=== PATIENT | female | born 1990 | race Caucasian/White ===

== ENCOUNTER 2017-05-09 06:38 | Inpatient (IN) | payer MEDICAID ==
[~2017-05-09] VITALS: Ht 167.6 cm; Wt 74.5 kg
[2017-05-09] VITALS (63 sets, daily range): BP systolic 96–157; BP diastolic 52–85; PULSE 75–146; TEMP 97.7–98.6
[~2017-05-09 06:38] MED LIST: MOTRIN 600600 MG/TAB PO; NORCO 325 MG-7.1 TAB PO; PAXIL 10MG10 MG PO; PERCOCET 325 MG1 TA2 PO; YAZ 28 3 MG-0.01 TAB PO; ZOVIRAX 200MG200 MG PO
[2017-05-09] MEDS ORDERED: PRENATAL PO (07:48)
[2017-05-09] MEDS ORDERED: VALTREX 50500 MG/TAB PO (07:49)
[2017-05-09 08:09] LABS: BASO # 0.1 (0.0-0.2); BASO % 0.4 % (0.0-2.0); EOS # 0.1 (0.0-0.7); EOS % 0.6 % (0-4.0); GRAN # 8.1 (1.4-6.5); GRAN % 62.3 % (42.2-75.2); HEMATOCRIT 39.8 % (37.0-47.0); HEMOGLOBIN 14.1 g/dl (12.5-16.0); LYMPH # 3.9 (1.2-3.4); MEAN CELL VOLUME 97 fl (80.0-100.0); MEAN CORPUSCULAR HEMOGLOBIN 34 pg (27.0-31.0); MEAN CORPUSCULAR HGB CONC 35 g/dl (33.0-37.0); MEAN PLATELET VOLUME 10.6 fl (7.4-10.4); MONO # 0.8 (0.1-0.6); MONO % 6.2 % (1.7-9.3); PLATELET COUNT 203 K/mm3 (130-400); RED BLOOD COUNT 4.11 M/mm3 (4.10-5.30)
[2017-05-10 00:15] VITALS: BP 130/88; PULSE 109
[2017-05-10 01:15] VITALS: BP 119/67; PULSE 111
[2017-05-10 05:00] VITALS: BP 117/71; PULSE 104; TEMP 99
[2017-05-10 08:30] VITALS: BP 87/65; PULSE 83; TEMP 97.8
[2017-05-10] MEDS ORDERED: IBU800 M1 PO (10:30)
[2017-05-10 16:15] VITALS: BP 115/60; PULSE 89; TEMP 97.6
[2017-05-10 20:35] VITALS: BP 119/80; PULSE 82; TEMP 98.3
[2017-05-11 07:46] VITALS: BP 121/73; PULSE 82; TEMP 97.3
== END 2017-05-11 12:15 | disposition home or self-care (01) | DRG 775 ==
LOC: LDR 06:38 → OB 06:59
PROVIDERS: Obstetrics & Gynecology
PROC: 10E0XZZ Delivery of Products of Conception, External Approach (ICD-10-PCS; principal; 2017-05-09)
PROC: 0KQM0ZZ Repair Perineum Muscle, Open Approach (ICD-10-PCS; 2017-05-09)
PROC: 3E033VJ Introduction of Other Hormone into Peripheral Vein, Percutaneous Approach (ICD-10-PCS; 2017-05-09)
DX: O70.1 Second degree perineal laceration during delivery (principal); Z3A.39 39 weeks gestation of pregnancy; Z37.0 Single live birth
CPT/HCPCS: J2590; J2795; J7120

== ENCOUNTER 2018-05-10 09:07 | Observation (INO) | payer MEDICAID ==
[~2018-05-10] VITALS: Ht 167.6 cm; Wt 61.2 kg
[~2018-05-10 09:07] MED LIST changes: +IBU800 M1 PO; +PRENATAL PO; +VALTREX 50500 MG/TAB PO
[2018-05-10] MEDS ORDERED: CAMILA0.35 MG PO (09:15)
[2018-05-10 09:47] LABS: COLLECTION METHOD CLEAN CATCH
[2018-05-10 09:49] LABS: BASO # 0.1 (0.0-0.2); BASO % 0.7 % (0.0-2.0); EOS % 0.4 % (0-4.0); GRAN # 5.1 (1.4-6.5); GRAN % 68.1 % (42.2-75.2); HEMATOCRIT 44.3 % (37.0-47.0); HEMOGLOBIN 15.6 g/dl (12.5-16.0); LYMPH # 1.8 (1.2-3.4); LYMPH % 23.4 % (20.0-51.0); MEAN CELL VOLUME 93 fl (80.0-100.0); MEAN CORPUSCULAR HEMOGLOBIN 33 pg (27.0-31.0); MEAN CORPUSCULAR HGB CONC 35 g/dl (33.0-37.0); MEAN PLATELET VOLUME 9.7 fl (7.4-10.4); MONO # 0.6 (0.1-0.6); MONO % 7.3 % (1.7-9.3); PLATELET COUNT 250 K/mm3 (130-400); RED BLOOD COUNT 4.75 M/mm3 (4.10-5.30); REDCELL DISTRIBUTION WIDTH-CV 11.1 % (11.5-14.5)
[2018-05-10 09:55] LABS: MUCOUS Present /lpf; PH 7 (5-8); SQUAMOUS EPITHELIAL 0-2 /hpf; URINE APPEARANCE Hazy; URINE BACTERIA None Seen /hpf; URINE BILIRUBIN Negative (NEGATIVE); URINE BLOOD 2+ (NEGATIVE); URINE COLOR Yellow; URINE GLUCOSE Negative (NEGATIVE); URINE KETONE Negative (NEGATIVE); URINE LEUKOCYTE ESTERASE Negative (NEGATIVE); URINE NITRATE Negative (NEGATIVE); URINE PROTEIN(semi-quant) Negative (NEGATIVE); URINE RBC 0-2 /hpf; URINE UROBILINOGEN Negative (NEGATIVE)
[2018-05-10 10:10] LABS: ALBUMIN 4.6 gm/dL (3.5-5.0); BILIRUBIN,TOTAL 0.7 mg/dL (0.0-1.0); C-REACTIVE PROTEIN 2.7 mg/dL (0.0-0.9); CALCIUM 9.8 mg/dL (8.4-10.2); CREATININE, serum 0.65 mg/dL (0.52-1.25); POTASSIUM 4.1 mmol/L (3.4-5.0); TOTAL PROTEIN 7.8 gm/dL (6.4-8.2)
[2018-05-10 12:48] VITALS: BP 127/74; PULSE 87; TEMP 98.3
[2018-05-10 15:46] VITALS: BP 120/70; PULSE 83; TEMP 98.8
[2018-05-10 19:20] VITALS: BP 115/71; PULSE 78; TEMP 98.1
[2018-05-10 23:53] VITALS: BP 100/52; PULSE 67; TEMP 98.5
[2018-05-11 04:39] VITALS: BP 107/69; PULSE 69; TEMP 97.9
[2018-05-11 06:13] LABS: HEMATOCRIT 38.7 % (37.0-47.0); MEAN CELL VOLUME 94 fl (80.0-100.0); MEAN CORPUSCULAR HEMOGLOBIN 33 pg (27.0-31.0); MEAN CORPUSCULAR HGB CONC 35 g/dl (33.0-37.0); MEAN PLATELET VOLUME 9.8 fl (7.4-10.4); PLATELET COUNT 206 K/mm3 (130-400)
[2018-05-11 06:23] LABS: HEMOGLOBIN 13.6 g/dl (12.5-16.0)
[2018-05-11 06:38] LABS: C-REACTIVE PROTEIN 2.1 mg/dL (0.0-0.9); CALCIUM 8.8 mg/dL (8.4-10.2); CREATININE, serum 0.65 mg/dL (0.52-1.25)
[2018-05-11 07:52] LABS: BAND 9 % (0-10); LYMPHOCYTE 48 % (20.0-51.0); NEUTROPHILS 38 % (42.0-75.2)
[2018-05-11 07:53] LABS: PLATELET ESTIMATE NORMAL (NORMAL)
[2018-05-11 08:54] VITALS: BP 111/74; PULSE 85; TEMP 97.3
[2018-05-11 11:42] VITALS: BP 116/72; PULSE 75; TEMP 97.6
[2018-05-11] MEDS ORDERED: FLAGYL500 MG PO (15:21)
[2018-05-11] MEDS ORDERED: OMNICEF 300MG300 MG PO (15:21)
== END 2018-05-11 16:10 | disposition home or self-care (01) ==
LOC: COL.ER 09:07 → SURG 11:02
PROVIDERS: Family Medicine; Surgery
DX: K35.80 Unspecified acute appendicitis (principal); Z88.0 Allergy status to penicillin
CPT/HCPCS: G0378; J1335; J1956; J7030; J7120; Q9967

== ENCOUNTER 2018-10-04 02:42 | Emergency (ER) | payer MEDICAID ==
[~2018-10-04] VITALS: Ht 167.6 cm; Wt 61.4 kg
[~2018-10-04 02:42] MED LIST changes: +CAMILA0.35 MG PO; +FLAGYL500 MG PO; +OMNICEF 300MG300 MG PO
[2018-10-04 02:54] VITALS: TEMP 97.8
[2018-10-04] MEDS ORDERED: VALTREX 50500 MG/TAB PO (03:18)
[2018-10-04] MEDS ORDERED: SPRINTEC 35 MCG1 TAB PO (03:18)
[2018-10-04 03:22] LABS: HEMATOCRIT 50.3 % (37.0-47.0); HEMOGLOBIN 17.7 g/dl (12.5-16.0); MEAN CELL VOLUME 94 fl (80.0-100.0); MEAN CORPUSCULAR HEMOGLOBIN 33 pg (27.0-31.0); MEAN CORPUSCULAR HGB CONC 35 g/dl (33.0-37.0); MEAN PLATELET VOLUME 9.9 fl (7.4-10.4); PLATELET COUNT 218 K/mm3 (130-400); RED BLOOD COUNT 5.37 M/mm3 (4.10-5.30); REDCELL DISTRIBUTION WIDTH-CV 11.7 % (11.5-14.5)
[2018-10-04 03:36] LABS: ALANINE AMINOTRANSFERASE 8 U/L (9-52); ALBUMIN 5.2 gm/dL (3.5-5.0); ALKALINE PHOSPHATASE 63 U/L (50-136); ANION GAP 18 mmol/L (7-16); AST,SGOT 27 U/L (15-37); BILIRUBIN,TOTAL 0.8 mg/dL (0.0-1.0); BLOOD UREA NITROGEN 19 mg/dL (7-17); CALCIUM 10.4 mg/dL (8.4-10.2); CARBON DIOXIDE 21 mmol/L (22-30); CHLORIDE 103 mmol/L (98-107); CREATININE, serum 0.94 (0.52-1.25); GLUCOSE 170 mg/dL (74-106); LIPASE 90 U/L (23-300); POTASSIUM 4.3 mmol/L (3.4-5.0); SODIUM 142 mmol/L (137-145); TOTAL PROTEIN 9.2 gm/dL (6.4-8.2)
[2018-10-04 03:37] LABS: C-REACTIVE PROTEIN < 0.5 mg/dL (0.0-0.9)
[2018-10-04] MEDS ORDERED: PHENERGAN 25 TA25 MG PO (05:15)
[2018-10-04] MEDS ORDERED: ZOFRAN ODT4 MG PO (05:15)
[2018-10-04 06:34] LABS: BAND 27 % (0-10); EOSINOPHIL 2 % (0-4); LYMPHOCYTE 6 % (20.0-51.0); NEUTROPHILS 62 % (42.0-75.2)
[2018-10-04 06:35] LABS: PLATELET ESTIMATE NORMAL (NORMAL)
[2018-10-04 06:39] VITALS: BP 117/79; PULSE 91
== END 2018-10-04 06:39 | disposition home or self-care (01) ==
LOC: COL.ER 02:42
PROVIDERS: Emergency Medicine
DX: A08.11 Acute gastroenteropathy due to Norwalk agent (principal); A04.0 Enteropathogenic Escherichia coli infection; E86.0 Dehydration; R11.10 Vomiting, unspecified; F41.9 Anxiety disorder, unspecified; F32.9 Major depressive disorder, single episode, unspecified
CPT/HCPCS: J2405; J2550; J7030

== ENCOUNTER 2019-02-17 09:18 | Emergency (ER) | payer MEDICAID ==
[~2019-02-17] VITALS: Ht 167.6 cm; Wt 59.1 kg
[~2019-02-17 09:18] MED LIST changes: +PHENERGAN 25 TA25 MG PO; +SPRINTEC 35 MCG1 TAB PO; +ZOFRAN ODT4 MG PO
[2019-02-17 09:29] VITALS: BP 112/79; TEMP 98.3
[2019-02-17 10:12] LABS: COLLECTION METHOD CLEAN CATCH
[2019-02-17 10:23] LABS: BASO % 0.4 % (0.0-2.0); EOS % 0.1 % (0-4.0); GRAN # 5.4 (1.4-6.5); GRAN % 72.6 % (42.2-75.2); HEMATOCRIT 44.7 % (37.0-47.0); HEMOGLOBIN 15.4 g/dl (12.5-16.0); LYMPH # 1.6 (1.2-3.4); LYMPH % 21.6 % (20.0-51.0); MEAN CELL VOLUME 96 fl (80.0-100.0); MEAN CORPUSCULAR HEMOGLOBIN 33 pg (27.0-31.0); MEAN CORPUSCULAR HGB CONC 35 g/dl (33.0-37.0); MEAN PLATELET VOLUME 9.7 fl (7.4-10.4); MONO # 0.4 (0.1-0.6); PLATELET COUNT 224 K/mm3 (130-400); RED BLOOD COUNT 4.66 M/mm3 (4.10-5.30); REDCELL DISTRIBUTION WIDTH-CV 11.3 % (11.5-14.5)
[2019-02-17 10:33] LABS: MUCOUS Present /lpf; PH 8 (5-8); SQUAMOUS EPITHELIAL 0-2 /hpf; URINE APPEARANCE Hazy; URINE BACTERIA None Seen /hpf; URINE BILIRUBIN Negative (NEGATIVE); URINE BLOOD Negative (NEGATIVE); URINE COLOR Yellow; URINE GLUCOSE Negative (NEGATIVE); URINE KETONE Negative (NEGATIVE); URINE LEUKOCYTE ESTERASE Negative (NEGATIVE); URINE NITRATE Negative (NEGATIVE); URINE PROTEIN(semi-quant) Negative (NEGATIVE); URINE RBC 0-2 /hpf; URINE UROBILINOGEN Negative (NEGATIVE)
[2019-02-17 10:33] LABS: ALANINE AMINOTRANSFERASE 9 U/L (9-52); ALBUMIN 4.6 gm/dL (3.5-5.0); ALKALINE PHOSPHATASE 44 U/L (50-136); ANION GAP 10 mmol/L (7-16); AST,SGOT 35 U/L (15-37); BILIRUBIN,TOTAL 0.5 mg/dL (0.0-1.0); BLOOD UREA NITROGEN 10 mg/dL (7-17); CALCIUM 9.3 mg/dL (8.4-10.2); CARBON DIOXIDE 26 mmol/L (22-30); CHLORIDE 104 mmol/L (98-107); CREATININE, serum 0.64 (0.52-1.25); GLUCOSE 84 mg/dL (74-106); LIPASE 54 U/L (23-300); POTASSIUM 4.2 mmol/L (3.4-5.0); SODIUM 140 mmol/L (137-145); TOTAL PROTEIN 7.7 gm/dL (6.4-8.2)
[2019-02-17] MEDS ORDERED: VALTREX 50500 MG/TAB PO (10:34)
[2019-02-17 10:37] LABS: C-REACTIVE PROTEIN < 0.5 mg/dL (0.0-0.9)
[2019-02-17 13:05] VITALS: PULSE 77
== END 2019-02-17 13:05 | disposition home or self-care (01) ==
LOC: COL.ER 09:18
PROVIDERS: Emergency Medicine
DX: R10.2 Pelvic and perineal pain (principal); Z98.890 Other specified postprocedural states
CPT/HCPCS: J7030

== ENCOUNTER 2020-11-16 06:12 | Inpatient (IN) | payer MEDICAID ==
[2020-11-16] VITALS (35 sets, daily range): BP systolic 111–141; BP diastolic 62–88; PULSE 9–120; TEMP 98.3–98.7
[~2020-11-16] VITALS: Ht 167.6 cm; Wt 74.5 kg
--- NOTE | 2020-11-16 06:30 | NUR ---
Patient arrives ambulatory with FOB for scheduled induction of labor. Patient reports occasional contractions, denies ROM or vaginal bleeding and reports normal movement. Patient changes into gown, EFM explained and placed. VS obtained. Plan of care for induction reviewed, patient agrees and denies questions. 0645- IV started in LFA, labs obtained and sent. LR infusing per protocol. Consents explained and signed. Denies questions. Assessment completed. 0705- Pitocin administration reviewed with patient, agrees and denies questions. FHR strip meets criteria for Pitocin induction. Pitocin started at 2 mU per protocol and order.
[2020-11-16] MEDS ORDERED: PRENATAL (06:51)
[2020-11-16 07:36] LABS: BASO % 0.4 % (0.0-2.0); EOS # 0.2 (0.0-0.7); EOS % 1.4 % (0-4.0); GRAN % 62.9 % (42.2-75.2); HEMATOCRIT 37.9 % (37.0-47.0); HEMOGLOBIN 13.2 g/dl (12.5-16.0); LYMPH # 3.1 (1.2-3.4); LYMPH % 28.2 % (20.0-51.0); MEAN CELL VOLUME 98 fl (80.0-100.0); MEAN CORPUSCULAR HEMOGLOBIN 34 pg (27.0-31.0); MEAN CORPUSCULAR HGB CONC 35 g/dl (33.0-37.0); MEAN PLATELET VOLUME 10.3 fl (7.4-10.4); MONO # 0.7 (0.1-0.6); MONO % 6.6 % (1.7-9.3); PLATELET COUNT 183 K/mm3 (130-400); RED BLOOD COUNT 3.85 M/mm3 (4.10-5.30); REDCELL DISTRIBUTION WIDTH-CV 12.7 % (11.5-14.5)
--- NOTE | 2020-11-16 13:25 | NUR ---
1325- Dr. Black at bedside. 1328- SVE per provider +2. Valenzuela catheter removed prior to pushing, pericare given. Nursery RN to bedside and patient assisted to footplates. Reports urge to push. 1335- Patient begins pushing with contractions with physician at bedside. 1337- of viable female attended by Dr. Black. Infant to mother's abdomen, care of to Ciro Herrera. Apgars 10/10/10. 1340- Spontaneous delivery of placenta. Pitocin started at 333 ml/hr/protocol. Fundal massage by RN notes moderate amount of free flow. Orders for Methergine, given at 1345. Vaginal bleeding improves with massage and medication. Second degree perineal laceration repaired by Dr. Black. Patient tolerates well. Pericare given and ice pack applied. Updated on plan of care and safety.
[2020-11-17] VITALS: BP 123/78; PULSE 87; TEMP 98
[2020-11-17 05:00] VITALS: BP 121/74; PULSE 74; TEMP 98.1
[2020-11-17] MEDS ORDERED: MOTRIN 800800 MG/TAB PO (08:08)
[2020-11-17 08:58] VITALS: BP 114/68; PULSE 86; TEMP 98.3
--- NOTE | 2020-11-17 10:25 | NUR ---
Initial visit; Parents thanked School Bus Driver/Custodian for offering Congratulations and God's blessings for the of their daughter. School Bus Driver/Custodian thanked family for choosing [facility].
== END 2020-11-17 16:09 | disposition home or self-care (01) | DRG 807 ==
LOC: LDR 06:12 → OB 16:00
PROVIDERS: ADMIT Obstetrics & Gynecology
PROC: 10E0XZZ Delivery of Products of Conception, External Approach (ICD-10-PCS; principal; 2020-11-16)
PROC: 0KQM0ZZ Repair Perineum Muscle, Open Approach (ICD-10-PCS; 2020-11-16)
PROC: 10907ZC Drainage of Amniotic Fluid, Therapeutic from Products of Conception, Via Natural or Artificial Opening (ICD-10-PCS; 2020-11-16)
PROC: 3E033VJ Introduction of Other Hormone into Peripheral Vein, Percutaneous Approach (ICD-10-PCS; 2020-11-16)
DX: O98.32 Other infections with a predominantly sexual mode of transmission complicating childbirth (principal); Z37.0 Single live birth; A60.09 Herpesviral infection of other urogenital tract; O70.1 Second degree perineal laceration during delivery; Z3A.39 39 weeks gestation of pregnancy
CPT/HCPCS: J2210; J2590; J7120

== ENCOUNTER 2021-04-12 14:50 | Day surgery (SDC) | payer MEDICAID ==
[~2021-04-12] VITALS: Ht 167.6 cm; Wt 66.4 kg
[~2021-04-12 14:50] MED LIST changes: +MOTRIN 800800 MG/TAB PO; +PRENATAL
[2021-04-12 15:46] LABS: BASO # 0.1 K/mm3 (0.0-0.2); BASO % 0.4 % (0.0-2.0); EOS % 0.2 % (0-4.0); GRAN # 11.8 K/mm3 (1.4-6.5); GRAN % 84.2 % (42.2-75.2); HEMATOCRIT 43.4 % (37.0-47.0); HEMOGLOBIN 15.5 g/dl (12.5-16.0); LYMPH # 1.4 K/mm3 (1.2-3.4); LYMPH % 9.8 % (20.0-51.0); MEAN CELL VOLUME 92 fl (80.0-100.0); MEAN CORPUSCULAR HEMOGLOBIN 33 pg (27.0-31.0); MEAN CORPUSCULAR HGB CONC 36 g/dl (33.0-37.0); MEAN PLATELET VOLUME 9.5 fl (7.4-10.4); MONO # 0.7 K/mm3 (0.1-0.6); PLATELET COUNT 224 K/mm3 (130-400); REDCELL DISTRIBUTION WIDTH-CV 11.1 % (11.5-14.5)
[2021-04-12 15:47] LABS: COLLECTION METHOD CLEAN CATCH
[2021-04-12 15:54] LABS: PH 7 (5-8); SQUAMOUS EPITHELIAL None Seen /hpf (0-10); URINE APPEARANCE Clear (CLEAR/HAZY); URINE BACTERIA None Seen (NONE SEEN); URINE BILIRUBIN Negative (NEGATIVE); URINE BLOOD Negative (NEGATIVE); URINE COLOR Straw (YELLOW); URINE GLUCOSE Negative (NEGATIVE); URINE KETONE Trace (NEGATIVE); URINE LEUKOCYTE ESTERASE Negative (NEGATIVE); URINE NITRATE Negative (NEGATIVE); URINE PROTEIN(semi-quant) Negative (NEGATIVE); URINE RBC 0-2 /hpf (0-2); URINE UROBILINOGEN Negative (NEGATIVE)
[2021-04-12 16:02] LABS: ALBUMIN 4.8 gm/dL (3.5-5.0); BILIRUBIN,TOTAL 0.6 mg/dL (0.2-1.2); C-REACTIVE PROTEIN 2.32 mg/dL (0.00-0.50); CREATININE, serum 0.81 mg/dL (0.57-1.11); POTASSIUM 4.6 mmol/L (3.5-4.5)
[2021-04-12 17:04] LABS: INR 1.2 (0.8-3.0); PROTHROMBIN TIME 13.2 SECONDS (9.7-12.8)
[2021-04-12 17:06] LABS: PARTIAL THROMBOPLASTIN TIME 33.8 SECONDS (26.0-37.0)
[2021-04-12] MEDS ORDERED: NORA-BE0.35 MG PO (17:47)
[2021-04-12] MEDS ORDERED: VALTREX 50500 MG/TAB PO (17:49)
--- NOTE | 2021-04-12 18:20 | NUR ---
PT ADMITTED TO UNIT. NO COMPLAINTS OF PAIN OR NAUSEA. NO SIGNS OF DISTRESS. AND 4 MONTH OLD DUAGHTER AT BEDSIDE TO BREASTFEED. CONSENT FOR SURGERY SIGNED. FLUIDS HUNG.
[2021-04-12 19:25] VITALS: BP 128/95; PULSE 95; TEMP 97.7
--- NOTE | 2021-04-12 20:20 | NUR ---
PT TAKEN TO O.R. FOR LAP LIZETTE.
--- NOTE | 2021-04-12 22:05 | NUR ---
PT BACK FROM PACU. PT DENIES NEED FOR PAIN MEDICATION. 3 LAP SITES TO ABDOMEN WELL APPROXIMATED. NO N/V.
[2021-04-12 22:15] VITALS: BP 107/59; PULSE 88
[2021-04-12 22:30] VITALS: BP 108/68; PULSE 94
[2021-04-12 22:44] VITALS: BP 114/80; PULSE 91; TEMP 97.9
[2021-04-12 23:15] VITALS: BP 109/74; PULSE 88
[2021-04-12 23:44] VITALS: BP 108/69; PULSE 90
[2021-04-13 00:45] VITALS: BP 107/76; PULSE 92; TEMP 96.9
[2021-04-13 03:55] VITALS: BP 111/73; PULSE 71; TEMP 97.6
--- NOTE | 2021-04-13 05:43 | NUR ---
PT VOIDING. ALTERNATING IBUPROFEN AND TYLENOL FOR PAIN. INDEPENDENT IN ROOM.
[2021-04-13 07:35] VITALS: BP 106/77; PULSE 82; TEMP 97.8
--- NOTE | 2021-04-13 08:00 | NUR ---
PT IS ALERT AND ORIENTED THIS MORNING. SHE IS SITTING UP IN BED WAITING FOR BREAKFAST TO ARRIVE. LAP SITES X3 ARE WELL APPROXIMATED WITH NO DRAINAGE. PT DOES NOT COMPLAIN OF ANY PAIN. PT STATES SHE IS READY TO LEAVE TODAY. SHE HAS NO OTHER NEEDS AT THIS TIME. CALL LIGHT AND BELONGINGS WITHIN REACH.
--- NOTE | 2021-04-13 09:24 | NUR ---
key worker met with patient to discuss discharge plan.Patient lives at home with her life partner Ed ([phone]) and their 3 young children. Patient is fully independent with her ADL's and does not utilize any medical equipment to assist with mobility. Patient has no oxygen needs. PCP is Dr. Collins and she utilizes [facility] for perscriptions with no cost difficulty. Patient does not have a DPOA-HC established. Education provided and the patient wishes to complete one listing her LP Ed. This SW and CASTRO Ferraro witnessed patient sign. Original and copy given to the patient and copy placed in the patient's chart. Patient is planning on returning home with no concerns. Discharge plan: Home
[2021-04-13] MEDS ORDERED: COLACE 100100 MG/CAP PO (10:16)
--- NOTE | 2021-04-13 10:50 | NUR ---
PATIENT DISCHARGING HOME VIA WC TO PERSONAL VEHICLE WITH AND DAUGHTER. GAVE DISCHARGE INSTRUCTIONS, E-SCRIPT SENT, AND DISCUSSED F/U APT. [facility] DC'D IV SITE AND COVERED SITE WITH [employer]. PATIENT IS DRESSED, PACKED AND ESCORTED OUT.
== END 2021-04-13 10:55 | disposition home or self-care (01) ==
LOC: COL.ER 14:50 → SDCO 16:40 → SURG 16:40 → COL.ER 16:40 → SURG 16:41 → SDCO 16:48 → SURG 04-13 10:55 → SDCO 04-13 10:55
PROVIDERS: Emergency Medicine
DX: K35.80 Unspecified acute appendicitis (principal); Z79.899 Other long term (current) drug therapy; Z87.891 Personal history of nicotine dependence
CPT/HCPCS: OP; G0378; J0330; J1100; J1335; J1885; J2250; J2405; J2704; J3010; J7030; Q9967

== ENCOUNTER 2021-06-06 11:03 | Emergency (ER) | payer MEDICAID ==
[~2021-06-06] VITALS: Ht 167.6 cm; Wt 66.8 kg
[~2021-06-06 11:03] MED LIST changes: +COLACE 100100 MG/CAP PO; +NORA-BE0.35 MG PO
[2021-06-06 11:17] VITALS: TEMP 98.1
[2021-06-06 11:30] LABS: MEAN CELL VOLUME 95 fl (80.0-100.0); MEAN CORPUSCULAR HEMOGLOBIN 33 pg (27-31); MEAN CORPUSCULAR HGB CONC 35 g/dl (33.0-37.0); MEAN PLATELET VOLUME 9.6 fl (7.4-10.4); PLATELET COUNT 358 K/mm3 (130-400); RED BLOOD COUNT 5.51 M/mm3 (4.10-5.30); REDCELL DISTRIBUTION WIDTH-CV 11.5 % (11.5-14.5)
[2021-06-06 11:34] LABS: HEMATOCRIT 52.2 % (37.0-47.0)
[2021-06-06 11:46] LABS: ALBUMIN 5.4 gm/dL (3.5-5.0); BILIRUBIN,TOTAL 0.7 mg/dL (0.2-1.2); CALCIUM 10.4 mg/dL (8.4-10.2); CREATININE, serum 1.04 mg/dL (0.57-1.11); POTASSIUM 4.2 mmol/L (3.5-4.5); TOTAL PROTEIN 8.8 gm/dL (6.2-8.1)
[2021-06-06 11:57] LABS: EOSINOPHIL 1 % (0-4); LYMPHOCYTE 3 % (20.0-51.0); NEUTROPHILS 90 % (42.0-75.2)
[2021-06-06 11:58] LABS: PLATELET ESTIMATE NORMAL (NORMAL)
[2021-06-06 12:39] LABS: COLLECTION METHOD CLEAN CATCH
[2021-06-06 12:50] LABS: MUCOUS Present (NOT PRESENT); PH 6 (5-8); SQUAMOUS EPITHELIAL 0-2 /hpf (0-10); URINE APPEARANCE Hazy (CLEAR/HAZY); URINE BACTERIA None Seen /hpf (NONE SEEN); URINE BILIRUBIN Negative (NEGATIVE); URINE BLOOD Negative (NEGATIVE); URINE COLOR Yellow (YELLOW); URINE GLUCOSE Negative (NEGATIVE); URINE KETONE 1+ (NEGATIVE); URINE LEUKOCYTE ESTERASE Negative (NEGATIVE); URINE NITRATE Negative (NEGATIVE); URINE PROTEIN(semi-quant) 2+ (NEGATIVE); URINE RBC 0-2 /hpf (0-2); URINE UROBILINOGEN Negative (NEGATIVE)
[2021-06-06] MEDS ORDERED: ZOFRAN ODT4 MG PO ×2 (13:54)
[2021-06-06 13:59] VITALS: BP 109/71; PULSE 110
[2021-06-06] MEDS ORDERED: REGLAN 10MG10 MG/TAB PO (13:59)
== END 2021-06-06 14:17 | disposition home or self-care (01) ==
LOC: COL.ER 11:03
PROVIDERS: Physician Assistant
DX: K52.9 Noninfective gastroenteritis and colitis, unspecified (principal); R00.0 Tachycardia, unspecified; Z20.822 Contact with and (suspected) exposure to COVID-19
CPT/HCPCS: J2405; J7030; Q9967